=== PATIENT | female | born 1990 | race Caucasian/White ===

== ENCOUNTER → 2016-11-05 | Outpatient (CLI) | payer BC | LOC: FIMAGING 08:55 | PROVIDERS: ATTEND Obstetrics & Gynecology | DX: Z34.01 Encounter for supervision of normal first pregnancy, first trimester (principal); Z3A.12 12 weeks gestation of pregnancy ==

== ENCOUNTER → 2016-12-21 | Outpatient (CLI) | payer BC | LOC: FIMAGING 07:00 | PROVIDERS: ATTEND Obstetrics & Gynecology | DX: Z34.82 Encounter for supervision of other normal pregnancy, second trimester (principal); Z3A.19 19 weeks gestation of pregnancy ==

== ENCOUNTER → 2017-01-19 | Outpatient (CLI) | payer BC | LOC: FIMAGING 13:19 | PROVIDERS: ATTEND Obstetrics & Gynecology | DX: Z34.02 Encounter for supervision of normal first pregnancy, second trimester (principal); Q68.1 Congenital deformity of finger(s) and hand; Z3A.23 23 weeks gestation of pregnancy ==

== ENCOUNTER → 2017-09-24 | Outpatient (CLI) | payer OTHER | LOC: FIMAGING 12:24 | PROVIDERS: ATTEND Family Medicine | DX: R22.42 Localized swelling, mass and lump, left lower limb (principal) ==